=== PATIENT | male | born 1970 | race American Indian/Alaskan Native ===

== ENCOUNTER 2019-04-11 19:18 | Emergency (ER) | payer SELFPAY ==
[2019-04-11 19:36] VITALS: BP 125/71
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
== END 2019-04-11 20:52 | disposition left against medical advice (07) ==
LOC: ED 19:18
DX: M54.89 Other dorsalgia (principal); V89.2XXA Person injured in unspecified motor-vehicle accident, traffic, initial encounter; Y93.89 Activity, other specified; Y92.89 Other specified places as the place of occurrence of the external cause; Y99.8 Other external cause status
CPT/HCPCS: 99282